=== PATIENT | female | born 1970 | race African-American/Black ===

== ENCOUNTER 2017-10-17 17:17 | Emergency (ER) | payer MEDICAID ==
[~2017-10-17] VITALS: Ht 170.2 cm; Wt 64.9 kg
[~2017-10-17 17:17] MED LIST: NAPROXEN500 M2 ORAL; NORCO 5-325 TA1 EACH ORAL
[2017-10-17] MEDS ORDERED: Tetanus/Diptheria/Pertussis Vaccine 0.5ml Syr IM ONE (17:45)
--- NOTE | 2017-10-17 18:11 | Emergency Room Report ---
History of Present Illness General Chief Complaint: Upper Extremity Injury Source: Patient Present Illness HPI 46-year-old female presents to the emergency department complaining of 6/10 in severity burning pain to the left wrist area progressive x2 days. Patient states that she accidentally burned herself while cooking with hot oil 2 days ago. Patient states that she had a small blister which popped across the back side of her left wrist however she is noticing that she is continuing to have sensitivity and has had progression and erythema around the burn site. Patient denies fevers or chills. She is not a when her last tetanus vaccination was. She denies coe elsewhere on the body. Denies CP, Palpitations, LOC, AMS, dizziness, Changes in Vision, Sensation, paresthesias, or a sudden severe headache. Allergies: Coded Allergies: No Known Allergies (Unverified , 07/13/13) Patient History Past Medical History: see triage record Past Surgical History: none Pertinent Family History: none Last Menstrual Period: n/a Reviewed Nursing Documentation: PMH: Agreed, PSxH: Agreed Nursing Documentation-PMH Past Medical History: No Stated History Review of Systems All Other Systems: negative except mentioned in HPI Physical Exam Vital Signs Date Time Temp Pulse Resp B/P (MAP) Pulse Ox O2 Delivery O2 Flow Rate FiO2 10/17/17 17:25 98.1 86 18 149/94 100 Room Air Sp02 EP Interpretation: reviewed, normal General Appearance: no apparent distress, alert, GCS 15, non-toxic Head: normocephalic, atraumatic Eyes: bilateral eye normal inspection, bilateral eye PERRL ENT: hearing grossly normal, normal voice Neck: full range of motion Respiratory: lungs clear, normal breath sounds, speaking full sentences Cardiovascular #1: regular rate, rhythm Musculoskeletal: back normal, gait/station normal, normal range of motion, non- tender Neurologic: alert, oriented x3, responsive, motor strength/tone normal, sensory intact, speech normal Skin: no rash, warm/dry, well hydrated, coe - Second -degree burn to the dorsal left wrist covering 1 % of the BSA, non-circumferential , surrounding erythema with increased temperature to palpation beyond the borders of the burn noted, no superficial ttp to this erythematous area. suspicious for secondary infection. Medical Decision Making PA Attestation Dr. Kahn is my supervising Physician whom patient management has been discussed with. Diagnostic Impression: Primary Impression: Second degree burn ER Course 46-year-old female presents to the emergency department complaining of 6/10 in severity burning pain to the left wrist area progressive x2 days. Patient states that she accidentally burned herself while cooking with hot oil 2 days ago. Patient states that she had a small blister which popped across the back side of her left wrist however she is noticing that she is continuing to have sensitivity and has had progression and erythema around the burn site. Patient denies fevers or chills. She is not a when her last tetanus vaccination was. She denies coe elsewhere on the body. Denies CP, Palpitations, LOC, AMS, dizziness, Changes in Vision, Sensation, paresthesias, or a sudden severe headache. Ddx considered but are not limited to cellulitis, burn, Septic Joing, fracture, d/L, gout, fungal infection, DVT Vital signs: are WNL, pt. is afebrile H&PE are most consistent with : Second -degree burn to the dorsal left wrist covering 1 % of the BSA, non-circumferential , surrounding erythema with increased temperature to palpation beyond the borders of the burn noted, no superficial ttp to this erythematous area. ORDERS: none required at this time, the diagnosis is clinical ED INTERVENTIONS: -Tdap Vaccination is administered. -Wound care/cleaning performed by RN. -Silvadene Cream and sterile dressing is applied by RN. DISCHARGE: At this time pt. is stable for d/c to home. Will provide printed patient care instructions, and any necessary prescriptions. Care plan and follow up instructions have been discussed with the patient prior to discharge. Last Vital Signs Date Time Temp Pulse Resp B/P (MAP) Pulse Ox O2 Delivery O2 Flow Rate FiO2 10/17/17 17:25 98.1 86 18 149/94 100 Room Air Disposition: HOME, SELF-CARE Condition: Stable Scripts Cephalexin* (KEFLEX*) 500 Mg Capsule 500 MG ORAL EVERY 12 HOURS for 7 Days, #14 CAP 0 Refills Prov: Heiid Buitrago P.A. 10/17/17 Acetaminophen* (TYLENOL EXTRA STRENGTH*) 500 Mg Tablet 500 MG ORAL Q6H, #20 TAB 0 Refills Prov: Heidi Buitrago P.A. 10/17/17 Silver Sulfadiazine (SILVADENE) 20 Gm Cream..g. 1 APPLIC TP BID, #20 GM Prov: Heidi Buitrago 10/17/17 Patient Instructions: Second-Degree Burn Additional Instructions: Take medications as directed. Follow up with a Primary Care Provider in 3-5 days, even if your symptoms have resolved. --Please review list of primary care clinics, if you do not already have a primary care provider Return sooner to ED if new symptoms occur, or current symptoms become worse. - Please note that this Emergency Department Report was dictated using [employer] hair technology software, occasionally this can lead to erroneous entry secondary to interpretation by the dictation equipment. Heidi Buitrago Oct 17, 2017 18:11
[2017-10-17] MEDS ORDERED: TYLENOL EXTRA500 MG ORAL (18:12)
[2017-10-17] MEDS ORDERED: SILVADENE20 GM TP (18:12)
[2017-10-17] MEDS ORDERED: CEPHALEXIN500 MG ORAL (18:13)
[2017-10-17 18:15] VITALS: BP 145/91
== END 2017-10-17 18:15 | disposition home or self-care (01) ==
LOC: EMR 18:13
DX: T23.272A Burn of second degree of left wrist, initial encounter (principal); T31.0 Burns involving less than 10% of body surface; Z23 Encounter for immunization; X10.2XXA Contact with fats and cooking oils, initial encounter; Y93.G3 Activity, cooking and baking; Y92.009 Unspecified place in unspecified non-institutional (private) residence as the place of occurrence of the external cause
CPT/HCPCS: 16020; 90471; 90715; 99283; Z7502

== ENCOUNTER 2017-11-03 20:56 | Emergency (ER) | payer MEDICAID ==
[~2017-11-03] VITALS: Ht 182.9 cm; Wt 60.8 kg
[~2017-11-03 20:56] MED LIST changes: +CEPHALEXIN500 MG ORAL; +SILVADENE20 GM TP; +TYLENOL EXTRA500 MG ORAL
[2017-11-03 21:40] VITALS: BP 110/81
[2017-11-03] MEDS ORDERED: PREDNISONE20 MG ORAL (22:27)
[2017-11-03] MEDS ORDERED: ALBUTEROL SULF8.5 GM INH (22:27)
[2017-11-03] MEDS ORDERED: IBUPROFEN600 MG ORAL (22:27)
--- NOTE | 2017-11-03 22:27 | Emergency Room Report ---
History of Present Illness General Chief Complaint: Flu Like Symptoms Source: Patient Present Illness HPI Is a 46-year-old female with no significant respiratory issue. She gets frequent bronchitis. She presents with chief complaint of fever and chills the last 3 days. With coughing congestion. Body pain. Pain is 8/10. No relief with Tylenol. Worse with coughing. Also with ear pain and sore throat. Allergies: Coded Allergies: No Known Allergies (Unverified , 07/13/13) Patient History Past Medical History: see triage record, old chart reviewed Past Surgical History: other Pertinent Family History: none Social History: Denies: smoking Last Menstrual Period: nONE Now: No Immunizations: other Reviewed Nursing Documentation: PMH: Agreed, PSxH: Agreed Nursing Documentation-PMH Past Medical History: No Stated History Review of Systems Constitutional: Reports: fever, malaise, weakness Eye: Denies: eye pain, blurred vision ENT: Reports: ear pain, nose congestion, throat pain, throat swelling Respiratory: Reports: cough, Denies: shortness of breath Cardiovascular: Reports: chest pain, Denies: palpitations Gastrointestinal: Reports: nausea, vomiting, Denies: abdominal pain, diarrhea Musculoskeletal: Denies: back pain, joint pain Skin: Denies: rash Neurological: Denies: headache, numbness Endocrine: Denies: increased thirst, increased urine Hematologic/Lymphatic: Denies: easy bruising All Other Systems: negative except mentioned in HPI Physical Exam Vital Signs Date Time Temp Pulse Resp B/P (MAP) Pulse Ox O2 Delivery O2 Flow Rate FiO2 11/03/17 21:19 99.3 96 18 148/100 98 Room Air vitals with a low-grade fever Sp02 EP Interpretation: reviewed, normal General Appearance: well appearing, no apparent distress, alert Head: normocephalic, atraumatic Eyes: bilateral eye PERRL, bilateral eye EOMI ENT: hearing grossly normal, normal pharynx Neck: full range of motion, supple, no meningismus Respiratory: chest non-tender, lungs clear, normal breath sounds Cardiovascular #1: regular rate, rhythm, no murmur Gastrointestinal: normal bowel sounds, non tender, no mass, no organomegaly, no bruit, non-distended Musculoskeletal: back normal, gait/station normal, normal range of motion Psychiatric: mood/affect normal Skin: warm/dry Medical Decision Making Diagnostic Impression: Primary Impression: Influenza-like symptoms ER Course Patient with flulike symptoms. No evidence of sepsis or pneumonia. No evidence of strep throat. We'll discharge home. Last Vital Signs Date Time Temp Pulse Resp B/P (MAP) Pulse Ox O2 Delivery O2 Flow Rate FiO2 11/03/17 21:19 99.3 96 18 148/100 98 Room Air Status: improved Disposition: HOME, SELF-CARE Condition: Stable Scripts Prednisone* (PREDNISONE*) 20 Mg Tablet 60 MG ORAL DAILY, #15 TAB Prov: BLAIR COCHRAN M.D. 11/03/17 Albuterol Sulfate* (ALBUTEROL SULFATE MDI*) 8.5 Gm Hfa.aer.ad 2 PUFF INH Q4H Y for cough/wheezing, #1 EA 0 Refills Prov: BLAIR COCHRAN M.D. 11/03/17 Ibuprofen* (MOTRIN*) 600 Mg Tablet 600 MG ORAL THREE TIMES A DAY, #30 TAB 0 Refills Prov: BLAIR COCHRAN M.D. 11/03/17 Patient Instructions: INFLUENZA (Adult) Additional Instructions: Rest. Increase fluid. Followup with your DrCedric in 7 days. Return if symptom worsen. BLAIR COCHRAN M.D. Nov 03, 2017 22:27
[2017-11-03 22:30] VITALS: BP 110/81
== END 2017-11-03 22:30 | disposition home or self-care (01) ==
LOC: EMR 22:00
DX: J11.1 Influenza due to unidentified influenza virus with other respiratory manifestations (principal)
CPT/HCPCS: 99284

== ENCOUNTER 2020-05-01 01:04 | Emergency (ER) | payer MEDICAID, OTHER ==
[~2020-05-01] VITALS: Ht 167.6 cm; Wt 74.8 kg
[~2020-05-01 01:04] MED LIST changes: +ALBUTEROL SULF8.5 GM INH; +IBUPROFEN600 MG ORAL; +PREDNISONE20 MG ORAL
--- NOTE | 2020-05-01 01:20 | NUR ---
ED Nurse Note: Recieved pt from home, here with c/o abcess like lesionto face with swelling and pain, pt states had abcess for about 1 year, past 3 days began to swell and cause severe pain, redness and swelling noted also, pt denies any other complaints or discomforts.
[2020-05-01] MEDS ORDERED: IBUPROFEN600 M1 ORAL (01:38)
[2020-05-01] MEDS ORDERED: BACTRIM DS TAB1 EAC1 ORAL (01:38)
--- NOTE | 2020-05-01 01:39 | Emergency Room Report ---
History of Present Illness General Chief Complaint: Skin Rash/Abscess Source: Patient Present Illness HPI This is a 49-year-old female with no past medical history. She presents with chief complaint of swelling to her face. She had a bump to the glabella of her face for a year now. By the last couple days been swollen and painful. No fever chills. She denies any trauma. Denies any drainage. Pain is 7 out of 10. Worse with palpation. Nothing made it better. Allergies: Coded Allergies: No Known Allergies (Unverified , 07/13/13) COVID-19 Screening Contact w/high risk pt: No Recent Travel to affected area: No Experienced COVID-19 symptoms?: No COVID-19 Testing performed [employer]: Yes COVID-19 Screening: Negative COVID-19 COVID-19 Testing Source: @ outpatient on 04/27 Patient History Past Medical History: see triage record, old chart reviewed Past Surgical History: none Pertinent Family History: none Now: No Immunizations: UTD Reviewed Nursing Documentation: PMH: Agreed; PSxH: Agreed Review of Systems Eye: Denies: eye pain, blurred vision ENT: Denies: ear pain, nose congestion, throat swelling Respiratory: Denies: cough, shortness of breath Cardiovascular: Denies: chest pain, palpitations Gastrointestinal: Denies: abdominal pain, diarrhea, nausea, vomiting Musculoskeletal: Denies: back pain, joint pain Skin: Denies: rash Neurological: Denies: headache, numbness Endocrine: Denies: increased thirst, increased urine Hematologic/Lymphatic: Denies: easy bruising All Other Systems: negative except mentioned in HPI Physical Exam Vital Signs Date Time Temp Pulse Resp B/P (MAP) Pulse Ox O2 Delivery O2 Flow Rate FiO2 05/01/20 01:09 99.0 91 16 132/73 (92) 99 Room Air Vitals normal Sp02 EP Interpretation: reviewed, normal General Appearance: well appearing, no apparent distress, alert Head: normocephalic, atraumatic Eyes: bilateral eye PERRL, bilateral eye EOMI ENT: hearing grossly normal, normal pharynx, other - There is a 1 cm erythematous mass to her glabella closer to the right eye. Neck: full range of motion, supple, no meningismus Respiratory: chest non-tender, lungs clear, normal breath sounds Cardiovascular #1: regular rate, rhythm, no murmur Gastrointestinal: normal bowel sounds, non tender, no mass, no organomegaly, no bruit, non-distended Musculoskeletal: back normal, normal range of motion, gait/station normal Psychiatric: mood/affect normal Procedures Incision and Drainage Incision and Drainage : Consent: Verbal Site: Face Blade Size: 11 I & D Procedure: betadine prep Wound Location: face Anesthesia: 1% Lidocaine Volume Anesthetic (ccs): 1 Patient Tolerated: Well Complications: None Progress Area cleaned with Betadine. Local anesthetic with 1% lidocaine without epinephrine. Injected about 0.2 cc with an insulin needle. I may a small incision with 11 blade scalpel. Initially there was purulent discharge and then after squeezing it, there was more thick cottage cheesy discharge. Using a hemostat an 11 blade scalpel, I try to core out the capsule. Patient tolerated procedure without any problem. Medical Decision Making Diagnostic Impression: Primary Impression: Infected sebaceous cyst ER Course Patient with infected sebaceous cyst. No evidence of deep infection. No necrotizing fasciitis. No orbital cellulitis. Last Vital Signs Date Time Temp Pulse Resp B/P (MAP) Pulse Ox O2 Delivery O2 Flow Rate FiO2 05/01/20 01:09 99.0 91 16 132/73 (92) 99 Room Air Status: improved Disposition: HOME, SELF-CARE Condition: Stable Scripts Ibuprofen* (MOTRIN*) 600 Mg Tablet 600 MG ORAL Q6H PRN for For Pain, #30 TAB 0 Refills Prov: Bar Garcia MD 05/01/20 Trimethoprim/Sulfamethoxazole 160/800* (BACTRIM DS TABLET*) 1 Each Tablet 1 TAB ORAL Q12H, #14 TAB 0 Refills Prov: Bar Garcia MD 05/01/20 Referrals: [facility],REFERRING (PCP) Additional Instructions: Keep wound clean. Clean first with hydrogen peroxide and then apply antibiotic ointment. Follow-up with your doctor in 7 days for recheck. Return if worse. Bar Garcia MD May 01, 2020 01:39
[2020-05-01] MEDS ORDERED: Morphine Sulfate 2mg/ml Inj(IV/IM USE ONLY) IM ONE (01:45)
[2020-05-01] MEDS ORDERED: Bactrim-DS 1 tab ORAL ONE (01:45)
[2020-05-01] MEDS ORDERED: Morphine Sulfate 4mg/ml Inj (IV USE ONLY) ONE (01:46)
[2020-05-01 01:50] VITALS: BP 132/73
--- NOTE | 2020-05-01 01:50 | NUR ---
ED Nurse Note: ER DISCHARGE NOTE: Patient is cleared to be discharged per ERMD, pt is aox4, on room air, with stable vital signs. pt was given dc and prescription instructions, pt was able to verbalize understanding, pt id band removed without complications. pt is able to ambulate with steady gait. pt took all belongings. s/p I and D of area, tolerated well, dry dressing applied.
== END 2020-05-01 01:50 | disposition home or self-care (01) ==
LOC: EMR 01:25
DX: L72.3 Sebaceous cyst (principal)
CPT/HCPCS: 10060; 96372; J2270; Z7502; 99283